=== PATIENT | male | born 1995 | race Caucasian/White ===

== ENCOUNTER → 2019-06-07 | Outpatient (CLI) | payer OTHER ==
--- NOTE | 2019-06-07 16:17 | RAD ---
Thyroid ultrasound HISTORY: Abnormality on CT scan. Acute thyroiditis. COMPARISON: CT scan March 11, 2018. FINDINGS: Right thyroid: Measures 5.7 x 1.4 x 1.3 cm. Numerous hypoechoic cystic-type nodules throughout the right lobe, measuring 8 mm or less. No significant vascularity is seen within any of these numerous nodules. Isthmus: 2 mm thickness. Left thyroid: Measures 4.6 x 1.5 x 1.0 cm. Numerous hypoechoic nodules with a cystic appearance are identified. There appear to be fewer on the left thyroid as compared with the right. No significant hypervascularity within any of the nodules. Largest left lobe nodule measures 8 mm. IMPRESSION: Numerous cystic nodules throughout both lobes of the thyroid. The largest nodule in each lobe measures 8 mm. Electronically signed by: Syed Martins MD (06/07/2019 4:15 PM) [facility]
== END | disposition home or self-care (01) ==
LOC: US 11:10
PROVIDERS: ATTEND Family Medicine
DX: E04.2 Nontoxic multinodular goiter (principal); E06.0 Acute thyroiditis
CPT/HCPCS: 76536

== ENCOUNTER → 2019-08-10 | Outpatient (CLI) | payer OTHER ==
[2019-08-10 19:36] LABS: BASO # 0.1 x10^3/uL (0.0-0.2); BASO % 1 % (0-3); EOS # 0.1 x10^3/uL (0.0-0.7); EOS % 2 % (0-3); HEMATOCRIT 49.8 % (39.0-53.0); HEMOGLOBIN 16.7 g/dL (13.0-17.5); LYMPH # 1.5 x10^3/uL (1.0-4.8); LYMPH % 21 % (24-48); MEAN CORPUSCULAR HEMOGLOBIN 31 pg (25-35); MEAN CORPUSCULAR HGB CONC 34 g/dL (31-37); MEAN CORPUSCULAR VOLUME 91 fL (79-100); MONO # 0.9 x10^3/uL (0.0-1.1); MONO % 13 % (0-9); NEUT # 4.4 x10^3uL (1.8-7.7); NEUT % 63 % (31-73); PLATELET COUNT 224 x10^3/uL (140-400); RED BLOOD COUNT 5.47 x10^6/uL (4.30-5.70); RED CELL DISTRIBUTION WIDTH 12.8 % (11.5-14.5); WHITE BLOOD COUNT 7.1 x10^3/uL (4.0-11.0)
[2019-08-11 13:17] LABS: FREE T4 1.15 ng/dL (0.76-1.46); THYROID STIM HORMONE (TSH) 1.586 uIU/mL (0.358-3.740)
== END | disposition home or self-care (01) ==
LOC: PMG 18:33
PROVIDERS: ATTEND Physician Assistant Medical
DX: A60.9 Anogenital herpesviral infection, unspecified (principal); E04.1 Nontoxic single thyroid nodule
CPT/HCPCS: 84439; 84443; 84481; 85025; 86695; 86696; 87252